=== PATIENT | female | born 1955 | race Caucasian/White ===

== ENCOUNTER 2020-03-23 10:13 | Observation (INO) ==
[~2020-03-23 10:13] MED LIST: Lactated Ringers 1000 ml BAG 1,000 ML IV SCH
[2020-03-23] MEDS ORDERED: cefTRIAXone(*) 2 GM ADDV.VIAL ONE (10:52)
[2020-03-23] MEDS ORDERED: NS 0.9% IVPB ONE ×2 (12:00→17:15)
[2020-03-23] MEDS ORDERED: GENTAMICIN ADULT IVPB ONE ×2 (12:00→17:15)
[2020-03-23] MEDS ORDERED: NS 0.9% IV ONE (14:35)
[2020-03-23] MEDS ORDERED: Gentamicin ADULT per pharmacy 1 NOTE MISC FOLLOW UP PRN (15:06)
[2020-03-23 15:24] LABS: ABS Eosinophils 0.2 10^3/ul (0-0.6); ABS Lymphocytes 0.4 10^3/ul (1.0-4.8); ABS Monocytes 0.3 10^3/ul (0-0.8); Eosinophil % 1.4 %; Hematocrit 37 % (35-47); Hemoglobin 12.8 g/dL (12.0-16.0); Lymphocyte % 3.4 %; Mean Corpuscular HGB Conc 34 g/dL (31-36); Mean Corpuscular Hemoglobin 29 pg (27-31); Mean Corpuscular Volume 86 fL (80-97); Mean Platelet Volume 7.4 fL (7.4-10.4); Platelet Count 213 10^3/uL (150-450); Red Blood Count 4.36 10^6 /uL (3.70-4.87); Red Cell Distribution Width 14 % (10-15); White Blood Count 10.9 10^3/uL (3.5-10.8)
[2020-03-23 15:43] LABS: Albumin 3.3 g/dL (3.2-5.2); BUN/Creatinine Ratio 16.2 (8-20); C Reactive Protein 121.49 mg/L (<8.01); Calcium 7.6 mg/dL (8.6-10.3); EGFR African American 95.9 (>60); EGFR Non-African American 79.3 (>60); Globulin 3.2 g/dL (2-4); Potassium 3.3 mmol/L (3.5-5.0); Total Bilirubin 0.4 mg/dL (0.2-1.0); Total Protein 6.5 g/dL (6.4-8.9)
[2020-03-23] MEDS: NS 0.9% 1000 ml BAG 1,000 ML IV SCH (16:38)
[2020-03-23] MEDS: cefTRIAXone 1 gm/50 mL NS BAG 1 GM/50 ML BAG IVPB SCH (17:16)
[2020-03-23 17:27] LABS: Urine Appearance Clear; Urine Bilirubin Negative (Negative); Urine Blood 1+ (Negative); Urine Color Yellow; Urine Glucose Negative (Negative); Urine Ketones Trace (Negative); Urine Nitrite Negative (Negative); Urine Protein Negative (Negative); Urine Specific Gravity 1.014 (1.010-1.030); Urine Urobilinogen Negative (Negative)
[2020-03-23 17:29] LABS: Urine Bacteria Absent (Absent); Urine Red Blood Cell Absent (Absent); Urine White Blood Cell Absent (Absent)
[2020-03-23] MEDS: Heparin 5000 UNITS/ML VIAL(*) 1 ml vial SUBCUT SCH (21:13)
[2020-03-24] MEDS: NS 0.9% 1000 ml BAG 1,000 ML IV SCH ×2 (04:13→14:29)
[2020-03-24] MEDS: Heparin 5000 UNITS/ML VIAL(*) 1 ml vial SUBCUT SCH ×2 (06:30→14:03)
[2020-03-24 07:14] LABS: EGFR African American 102.3 (>60); EGFR Non-African American 84.5 (>60)
[2020-03-24] MEDS ORDERED: Mirabegron 50 mg TAB (NF) 50 MG TAB PO SCH (09:00)
[2020-03-24] MEDS ORDERED: Multivitamins/Minerals TAB PO SCH (09:00)
[2020-03-24 09:11] LABS: Calcium 7.4 mg/dL (8.6-10.3); Potassium 3.4 mmol/L (3.5-5.0)
[2020-03-24 09:16] LABS: ABS Eosinophils 0.1 10^3/ul (0-0.6); ABS Lymphocytes 0.7 10^3/ul (1.0-4.8); ABS Monocytes 0.3 10^3/ul (0-0.8); Hematocrit 34 % (35-47); Hemoglobin 11.9 g/dL (12.0-16.0); Lymphocyte % 11.6 %; Mean Corpuscular HGB Conc 35 g/dL (31-36); Mean Corpuscular Hemoglobin 30 pg (27-31); Mean Corpuscular Volume 85 fL (80-97); Mean Platelet Volume 7.3 fL (7.4-10.4); Platelet Count 204 10^3/uL (150-450); Red Blood Count 4.03 10^6 /uL (3.70-4.87); Red Cell Distribution Width 14 % (10-15); White Blood Count 5.8 10^3/uL (3.5-10.8)
[2020-03-24 10:19] LABS: BUN/Creatinine Ratio 11.4 (8-20)
[2020-03-24] MEDS: cefTRIAXone 1 gm/50 mL NS BAG 1 GM/50 ML BAG IVPB SCH (14:03)
[2020-03-24 16:24] VITALS: BP 127/67
[2020-03-24] MEDS ORDERED: GENTAMICIN ADULT IVPB ONE (17:00)
[2020-03-24] MEDS ORDERED: NS 0.9% IVPB ONE (17:00)
== END 2020-03-24 17:30 | disposition home or self-care (01) ==
LOC: OR 10:13 → MED 10:13
PROVIDERS: ADMIT Internal Medicine; ATTEND Hospitalist